=== PATIENT | male | born 1995 | race Caucasian/White ===

== ENCOUNTER 2017-02-21 21:50 | Emergency (ER) | payer SELFPAY ==
[~2017-02-21] VITALS: Ht 165.1 cm; Wt 72.0 kg
[2017-02-21 21:55] VITALS: Ht 165.1 cm; Wt 72.0 kg
== END 2017-02-22 01:52 | disposition left against medical advice (07) ==
LOC: FTE 21:50
DX: Z53.21 Procedure and treatment not carried out due to patient leaving prior to being seen by health care provider (principal)
CPT/HCPCS: 93005